=== PATIENT | female | born 1985 | race Caucasian/White ===

== ENCOUNTER 2017-02-06 | Emergency (ER) | payer OTHER ==
[~2017-02-06] VITALS: Ht 152.4 cm; Wt 88.9 kg
[2017-02-06 00:06] VITALS: Ht 152.4 cm; Wt 88.9 kg
[2017-02-06] MEDS ORDERED: KETOROLAC 30 MG INJ IV STA (01:15)
[2017-02-06] MEDS ORDERED: DIPHENHYDRAMINE 50 MG INJ IV ONE (01:30)
[2017-02-06] MEDS ORDERED: SOD CHLORIDE 0.9% 1,000 ML IV ONE (01:30)
[2017-02-06] MEDS ORDERED: METOCLOPRAMIDE 10 MG INJ IV ONE (01:30)
[2017-02-06] MEDS ORDERED: FIORICET PO (02:44)
[2017-02-06 03:10] VITALS: BP 119/80; PULSE 91; RESP 17; TEMP 98.1
--- NOTE | 2017-02-06 04:16 | ERD ---
ER Documentation Chief Complaint Chief Complaint STYLES SINCE 8PM W/ N/V AND DIZZINESS. HPI This is a 31-year-old female that presents to the ER with a left-sided headache that started 8 PM. Patient states that headache is severe, she tried taking Excedrin and a coke, however it did not work for her pain. Patient states that she has a past medical history of migraine headaches and that this headache is similar to previous headaches. This is not the worst headache of her life. Patient states that she experiences photophobia and sensitivity to sounds whenever these headaches occur, and she is experiencing this at this time. Patient denies any fevers or chills. She denies any trauma. She denies any vision loss or any sort of vision changes. Patient admits to nausea and nonbilious nonbloody vomiting however denies diarrhea. ROS 12 point review of systems was done, all negative except per HPI. Medications Home Meds Active Scripts Acetamin/Butalbital/Caffeine* (Fioricet*) [id number] Tab, 1 TAB PO Q6H Y for PAIN, #30 TAB Prov:VICENTADOREEN 02/06/17 Allergies Allergies: Coded Allergies: Penicillins (Verified Allergy, Unknown, rash, 02/09/14) oxycodone (Verified Allergy, Unknown, 02/06/17) PMhx/Soc Medical and Surgical Hx: pt denies Medical Hx, pt denies Surgical Hx History of Surgery: No Anesthesia Reaction: No Hx Neurological Disorder: No Hx Respiratory Disorders: No Hx Cardiac Disorders: No Hx Psychiatric Problems: No Hx Miscellaneous Medical Probl: No Hx Alcohol Use: No Hx Substance Use: No Hx Tobacco Use: No Smoking Status: Never smoker Physical Exam Vitals Vital Signs Date Time Temp Pulse Resp B/P Pulse Ox O2 Delivery O2 Flow Rate FiO2 02/06/17 03:10 98.1 91 17 119/80 100 Room Air 02/06/17 00:06 97.0 81 20 133/92 98 Physical Exam GENERAL: The patient is well developed and appropriate for usual state of health , in no apparent distress. HEENT: Atraumatic. Conjunctivae are pink. Pupils equal, round, and reactive to light. Extraocular muscles are grossly intact. Bilateral tympanic membranes are clear with no evidence of erythema, bulging or perforation. No sinus tenderness. NECK: C-spine is soft and supple. There is no cervical lymphadenopathy. CHEST: Clear to auscultation bilaterally. There are no rales, wheezes or rhonchi. HEART: Regular rate and rhythm. No murmurs, clicks, rubs or gallops. EXTREMITIES: Equal pulses bilaterally. There is no peripheral clubbing, cyanosis or edema. No focal swelling or erythema. Full range of motion. Grossly neurovascularly intact. NEURO: Alert and oriented. Cranial nerves II through XII are intact. Motor strength in all 4 extremities with 5/5 strength. Sensation grossly intact. Normal speech and gait. Negative Rhomberg. +2 DTRs. SKIN: There is no apparent rash or petechia. The skin is warm and dry. Results 24 hrs Current Medications Medications (Trade) Dose Ordered Sig/Zulay Route PRN Reason Start Time Stop Time Status Last Admin Dose Admin Ketorolac Tromethamine (Toradol) 30 mg ONCE STAT IV 02/06/17 01:15 02/06/17 01:17 DC 02/06/17 02:03 Diphenhydramine HCl (Benadryl) 25 mg ONCE ONCE IV 02/06/17 01:30 02/06/17 01:31 DC 02/06/17 02:02 Metoclopramide HCl 10 mg 10 mg ONCE ONCE IV 02/06/17 01:30 02/06/17 01:31 DC 02/06/17 02:02 Sodium Chloride (NS) 1,000 ml @ 1,000 mls/hr Q1H ONCE IV 02/06/17 01:30 02/06/17 02:29 DC 02/06/17 02:02 Procedures/MDM Differential Diagnosis includes but is not limited to; tension headache, migraine headache, cluster headache, sinus headache, nonspecific febrile headache, trigeminal neurologia, subdural hematoma, subarachnoid bleeding, meningitis, encephalitis. Patient is neurologically intact with no focal neurological deficits. Headache was completely resolved in the ER with IV, Benadryl, Reglan and fluids. I do not believe that further workup is necessary as patient has a past medical history of migraine headaches and this is similar in nature. Patient is extremely well-appearing and afebrile. She needs to follow-up with her primary care doctor within 1-2 days or return to ER sooner if symptoms worsen. My medical decision making sure with the patient she understands and agrees with plan. Departure Diagnosis: Primary Impression: Headache Condition: Stable Patient Instructions: Self-Care for Headaches Referrals: GWENDOLYN BIRMINGHAM (PCP) Additional Instructions: Call your primary care doctor TOMORROW for an appointment during the next 1-2 days.See the doctor sooner or return here if your condition worsens before your appointment time. DOREEN YADAV Feb 06, 2017 04:16
== END 2017-02-06 03:10 | disposition home or self-care (01) ==
LOC: FTE
DX: R51 Headache (principal)
CPT/HCPCS: 96374; 96375; J1200; J1885; J2765; J7030; Z7502

== ENCOUNTER 2017-03-04 20:35 | Emergency (ER) | payer OTHER ==
[~2017-03-04] VITALS: Ht 165.1 cm; Wt 92.0 kg
[~2017-03-04 20:35] MED LIST: FIORICET PO
[2017-03-04 20:52] VITALS: Ht 165.1 cm; Wt 92.0 kg
[2017-03-04] MEDS ORDERED: SOD CHLORIDE 0.9% 1,000 ML IV STA (22:52)
[2017-03-04] MEDS ORDERED: ONDANSETRON 4 MG INJ IV STA (22:52)
[2017-03-04] MEDS ORDERED: FAMOTIDINE 20 MG INJ IV ONE (23:00)
--- NOTE | 2017-03-04 23:16 | ERD ---
ER Documentation Chief Complaint Chief Complaint n/v since last night HPI 31-year-old female presents here to emergency department for complaints nausea vomiting diarrhea abdominal pain that started last night. Patient also had fever at home. Patient had multiple episodes of vomiting and diarrhea, does not have any blood in his stool or black stool. Patient is complaining of more epigastric pain, sharp pain, succession scale, accompanying bowel symptoms. Patient does not have any hematuria or dysuria. Patient did not have any flank pain. ROS All systems reviewed and are negative except as per history of present illness. Medications Home Meds Active Scripts Ondansetron (Ondansetron Odt) 4 Mg Tab.rapdis, 4 MG PO Q6H Y for NAUSEA AND/OR VOMITING, #30 TAB Prov:ENDY ABDULLAHI NP 03/05/17 Tramadol HCl (Tramadol HCl) 50 Mg Tablet, 50 MG PO Q6 Y for SEVERE PAIN LEVEL 7- 10, #20 TAB Prov:ENDY ABDULLAHI NP 03/05/17 Ibuprofen* (Motrin*) 600 Mg Tab, 600 MG PO Q6H Y for PAIN AND OR ELEVATED TEMP, #30 TAB Prov:ENDY ABDULLAHI NP 03/05/17 Dicyclomine Hcl* (Bentyl*) 10 Mg Capsule, 10 MG PO QID, #20 CAP Prov:ENDY ABDULLAHI NP 03/05/17 Acetamin/Butalbital/Caffeine* (Fioricet*) [id number] Tab, 1 TAB PO Q6H Y for PAIN, #30 TAB Prov:DOREEN YADAV 02/06/17 Allergies Allergies: Coded Allergies: Penicillins (Verified Allergy, Unknown, rash, 02/09/14) oxycodone (Verified Allergy, Unknown, 02/06/17) PMhx/Soc Medical and Surgical Hx: pt denies Medical Hx, pt denies Surgical Hx History of Surgery: No Anesthesia Reaction: No Hx Neurological Disorder: No Hx Respiratory Disorders: No Hx Cardiac Disorders: No Hx Psychiatric Problems: No Hx Miscellaneous Medical Probl: No Hx Alcohol Use: No Hx Substance Use: No Hx Tobacco Use: No FmHx Family History: No coronary disease, No diabetes, No other Physical Exam Vitals Vital Signs Date Time Temp Pulse Resp B/P Pulse Ox O2 Delivery O2 Flow Rate FiO2 03/04/17 20:52 99.3 108 16 130/80 97 Physical Exam GENERAL: The patient is well developed and appropriate for usual state of health, in no apparent distress. CHEST: Clear to auscultation bilaterally. There are no rales, wheezes or rhonchi. HEART: Regular rate and rhythm. No murmurs, clicks, rubs or gallops. No S3 or S4. ABDOMEN: Soft, nontender and nondistended. Hyperactive bowel sounds. No rebound or guarding. No gross peritonitis. No gross organomegaly or masses. No Ya sign or McBurney point tenderness. BACK: No midline or flank tenderness. EXTREMITIES: Equal pulses bilaterally. There is no peripheral clubbing, cyanosis or edema. No focal swelling or erythema. Full range of motion. Grossly neurovascularly intact. NEURO: Alert and oriented. Cranial nerves 2-12 intact. Motor strength in all 4 extremities with 5/5 strength. Sensation grossly intact. Normal speech and gait. SKIN: There is no apparent rash or petechia. The skin is warm and dry. HEMATOLOGIC AND LYMPHATIC: There is no evidence of excessive bruising or lymphedema. No gross cervical, axillary, or inguinal lymphadenopathy. Result Diagram: 03/04/17233403/04/172334 Results 24 hrs Laboratory Tests Test 03/04/17 23:35 White Blood Count 7.210^3/ul Red Blood Count 4.5410^6/ul Hemoglobin 13.0g/dl Hematocrit 40.1% Mean Corpuscular Volume 88.3fl Mean Corpuscular Hemoglobin 28.6pg Mean Corpuscular Hemoglobin Concent 32.4g/dl Red Cell Distribution Width 12.7% Platelet Count 85084^3/UL Mean Platelet Volume 9.7fl Neutrophils % 64.4% Lymphocytes % 26.1% Monocytes % 6.4% Eosinophils % 2.1% Basophils % 0.4% Nucleated Red Blood Cells % 0.0/100WBC Neutrophils # 4.710^3/ul Lymphocytes # 1.910^3/ul Monocytes # 0.510^3/ul Eosinophils # 0.210^3/ul Basophils # 0.010^3/ul Nucleated Red Blood Cells # 0.010^3/ul Urine Color YELLOW Urine Clarity CLEAR Urine pH 6.0 Urine Specific [place] 1.017 Urine Ketones NEGATIVEmg/dL Urine Nitrite NEGATIVEmg/dL Urine Bilirubin NEGATIVEmg/dL Urine Urobilinogen NEGATIVEmg/dL Urine Leukocyte Esterase NEGATIVELeu/ul Urine Hemoglobin NEGATIVEmg/dL Urine Glucose NEGATIVEmg/dL Urine Total Protein NEGATIVEmg/dl Sodium Level 139mmol/L Potassium Level 4.3mmol/L Chloride Level 102mmol/L Carbon Dioxide Level 26mmol/L Anion Gap 15 Blood Urea Nitrogen 8mg/dl Creatinine 0.52mg/dl Glucose Level 140mg/dl Calcium Level 9.6mg/dl Total Bilirubin 0.4mg/dl Direct Bilirubin 0.00mg/dl Indirect Bilirubin 0.4mg/dl Aspartate Amino Transf (AST/SGOT) 84IU/L Alanine Aminotransferase (ALT/SGPT) 127IU/L Alkaline Phosphatase 90IU/L Total Protein 7.1g/dl Albumin 3.9g/dl Globulin 3.20g/dl Albumin/Globulin Ratio 1.21 Lipase 69U/L Current Medications Medications (Trade) Dose Ordered Sig/Zulay Route PRN Reason Start Time Stop Time Status Last Admin Dose Admin Sodium Chloride (NS) 1,000 ml @ 1,000 mls/hr Q1H STAT IV 03/04/17 22:52 03/04/17 23:51 DC 03/04/17 23:28 Ondansetron HCl (Zofran Inj) 4 mg ONCE STAT IV 03/04/17 22:52 03/04/17 22:54 DC 03/04/17 23:28 Famotidine (Pepcid Iv) 20 mg ONCE ONCE IV 03/04/17 23:00 03/04/17 23:01 DC 03/04/17 23:28 Morphine Sulfate (morphine) 4 mg ONCE STAT IV 03/05/17 00:22 03/05/17 00:23 DC 03/05/17 00:29 Patient was given Zofran here in the emergency department. After treatment, patient was able to tolerate po fluids here in the emergency department without any vomiting. There is no signs and symptoms of dehydration. Normal saline IV bolus was given here in emergency department for rehydration, patient tolerated IV fluids. Pepcid was also given here in the emergency PROCEDURE: CT ABDOMEN/PELVIS WITHOUT CONTRAST CLINICAL INDICATION: 31-year-old female with abdominal pain. TECHNIQUE: The study was performed utilizing a [employer] VCT 64-slice CT scanner. Direct axial sections were obtained through the abdomen and pelvis without the use of intravenous contrast material. Sagittal and coronal reformations were obtained. One or more of the following dose reduction techniques were utilized: automated exposure control, adjustment of the mA and/ or kV according to patient's size and/or the use of iterative reconstruction technique. DICOM images are available. The images were reviewed on a PACS workstation. CTD/vol = 21.3 mGy; Total Exam DLP = 1272.5 mGy-cm. COMPARISON: None. FINDINGS: There is minimal bibasilar subsegmental atelectasis. There is no evidence for significant pleural effusion. The liver has a normal size and contour. There is marked diffuse decreased density throughout the liver consistent with fatty infiltration but without focal areas of abnormal density. No intrahepatic nor extrahepatic biliary ductal dilatation is seen. The gallbladder demonstrates no wall thickening nor pericholecystic fluid. No biliary stones are evident. The pancreas is without areas of abnormal attenuation. The spleen is identified and has a normal size without abnormal density. The adrenal glands are unremarkable. The kidneys are without abnormal density. No hydroureteronephrosis nor nephroureterolithiasis is evident. The urinary bladder contains urine. There is retained stool within the ascending and transverse colon without obstruction. The appendix is visualized and is without abnormal thickening or surrounding inflammatory reaction. The uterus is anteflexed. There is a cystic focus within the cul-de-sac region measuring approximately 2.8 x 3.0 x 2.2 cm. The aortoiliac vessels are without aneurysmal dilatation. The osseous structures are intact. IMPRESSION: 1. Hepatic steatosis. 2. Retained stool within the proximal colon without obstruction. 3. No CT evidence for appendicitis. 4. Cystic focus within the cul-de-sac region which may be ovarian in origin. Further evaluation with a pelvic ultrasound would be helpful. .Luis Vargas MD, MD Date Time Electronically viewed and signed by .Luis Vargas MD, MD on 03/05/2017 01:07 .M/ CC: ENDY ABDULLAHI RN [facility] PROCEDURE: ULTRASOUND PELVIS CLINICAL INDICATION: 31-year-old female with pelvic pain. TECHNIQUE: Multiple sonographic images of the pelvis were obtained utilizing a transabdominal and endovaginal technique. The images were reviewed on a PACS workstation. COMPARISON: CT abdomen/pelvis March 05, 2017. FINDINGS: The uterus is visualized and measures 7.0 x 3.6 x 4.2 cm. The endometrial echo complex is within normal limits and measures 6.7 mm. There is no evidence for free fluid. The right ovary has a normal echotexture and measures 4.3 x 2.0 x 3.8 cm. There is a right ovarian cyst measuring 2.3 x 2.7 x 2.8 cm. The left ovary has a normal echotexture and measures 3.9 x 2.1 x 3.1 cm. There is flow identified within the ovaries bilaterally. No adnexal masses are noted. IMPRESSION: Right ovarian cyst corresponding to the CT finding. .Luis Vargas MD, MD Date Time Electronically viewed and signed by .Luis Vargas MD, MD on 03/05/2017 02:48 .M/ CC: ENDY ABDULLAHI RN [facility] Procedures/MDM Medical Decision Making: Patient symptoms of vomiting diarrhea abdominal pain most likely is consistent with viral gastroenteritis. Also there is an incidental finding of a right ovarian cyst most likely can be aggravating the pain. No symptoms of any ovarian torsion. There is low suspicion for abdominal emergencies at this time. Patients abdominal exam is normal at this time. Patients radiology exam does not show any abdominal emergencies at this time. There is low suspicion for appendicitis, cholecystitis, abdominal aortic aneurysms or peritonitis at this time. There is low suspicion for sepsis. Patient appears well and is hemodynamically stable. Disposition: Home. Condition: Stable Prescription BEntyl, Zofran, Tramadol, Ibuprofen. Instructions: Patient is advised to take medications as prescribed. Patient is advised to rest, increase fluid intake and do brat diet for next 1-2 days and progress as tolerated. Patient is advised that if symptoms are worse, severe abdominal pain, uncontrolled vomiting, high fever, severe flank pain, worst signs and symptoms, to return to the emergency department immediately. Otherwise, patient can follow up with primary care doctor in 5-7 days. Disclaimer: Inadvertent spelling and grammatical errors are likely due to EHR/ dictation software use and do not reflect on the overall quality of patient care. Also, please note that the electronic time recorded on this note does not necessarily reflect the actual time of the patient encounter. Departure Diagnosis: Primary Impression: Viral gastroenteritis Additional Impression: Right ovarian cyst Condition: Stable Patient Instructions: Gastroenteritis, Viral (6Y-Adult), Ovarian Cyst Additional Instructions: Patient is advised to take medications as prescribed. Patient is advised to rest, increase fluid intake and do brat diet for next 1-2 days and progress as tolerated. Patient is advised that if symptoms are worse, severe abdominal pain , uncontrolled vomiting, high fever, severe flank pain, worst signs and symptoms , to return to the emergency department immediately. Otherwise, patient can follow up with primary care doctor in 5-7 days. ENDY ABDULLAHI NP Mar 04, 2017 23:16
[2017-03-05 00:07] LABS: BASOPHILS % 0.4 % (0.0-2.0); EOSINOPHILS # 0.2 10^3/ul (0.0-0.5); EOSINOPHILS % 2.1 % (0.0-7.0); HEMATOCRIT 40.1 % (37.0-47.0); LYMPHOCYTES # 1.9 10^3/ul (0.8-2.9); LYMPHOCYTES % 26.1 % (15.0-51.0); MEAN CORPUSCULAR HEMOGLOBIN 28.6 pg (29.0-33.0); MEAN CORPUSCULAR HGB CONC 32.4 g/dl (32.0-37.0); MEAN CORPUSCULAR VOLUME 88.3 fl (82.0-101.0); MEAN PLATELET VOLUME 9.7 fl (7.4-10.4); MONOCYTE # 0.5 10^3/ul (0.3-0.9); MONOCYTES % 6.4 % (0.0-11.0); NEUTROPHIL # 4.7 10^3/ul (1.6-7.5); NEUTROPHILS % 64.4 % (39.0-77.0); PLATELET COUNT 249 10^3/UL (140-415); RED BLOOD COUNT 4.54 10^6/ul (4.20-5.40); RED CELL DISTRIBUTION WIDTH 12.7 % (11.5-14.5); WHITE BLOOD COUNT 7.2 10^3/ul (4.8-10.8)
[2017-03-05 00:18] LABS: ADD UMIC NO; UR ASCORBIC ACID NEGATIVE (NEGATIVE); UR BILIRUBIN (Dip) NEGATIVE (NEGATIVE); UR BLOOD (Dip) NEGATIVE (NEGATIVE); UR CLARITY CLEAR (CLEAR); UR COLOR YELLOW (YELLOW); UR GLUCOSE (Dip) NEGATIVE (NEGATIVE); UR KETONES (Dip) NEGATIVE (NEGATIVE); UR LEUKOCYTE ESTERASE (Dip) NEGATIVE Leu/ul (NEGATIVE); UR NITRITE (Dip) NEGATIVE (NEGATIVE); UR SPECIFIC GRAVITY (Dip) 1.017 (1.003-1.030); UR TOTAL PROTEIN (Dip) NEGATIVE (NEGATIVE); UR UROBILINOGEN (Dip) NEGATIVE (NEGATIVE)
[2017-03-05] MEDS ORDERED: morphine 4 MG/ML VIAL IV STA (00:22)
--- NOTE | 2017-03-05 01:07 | RADRPT ---
PROCEDURE: CT ABDOMEN/PELVIS WITHOUT CONTRAST CLINICAL INDICATION: 31-year-old female with abdominal pain. TECHNIQUE: The study was performed utilizing a [employer] VCT 64-slice CT scanner. Direct axia l sections were obtained through the abdomen and pelvis without the use of intravenous contrast mate rial. Sagittal and coronal reformations were obtained. One or more of the following dose reduction t echniques were utilized: automated exposure control, adjustment of the mA and/or kV according to pat ient's size and/or the use of iterative reconstruction technique. DICOM images are available. The im ages were reviewed on a PACS workstation. CTD/vol = 21.3 mGy; Total Exam DLP = 1272.5 mGy-cm. COMPARISON: None. FINDINGS: There is minimal bibasilar subsegmental atelectasis. There is no evidence for significant pleural e ffusion. The liver has a normal size and contour. There is marked diffuse decreased density through out the liver consistent with fatty infiltration but without focal areas of abnormal density. No int rahepatic nor extrahepatic biliary ductal dilatation is seen. The gallbladder demonstrates no wall t hickening nor pericholecystic fluid. No biliary stones are evident. The pancreas is without areas of abnormal attenuation. The spleen is identified and has a normal size without abnormal density. The adrenal glands are unremarkable. The kidneys are without abnormal density. No hydroureteronephrosis nor nephroureterolithiasis is evident. The urinary bladder contains urine. There is retained stool within the ascending and transverse colon without obstruction. The appendix is visualized and is wi thout abnormal thickening or surrounding inflammatory reaction. The uterus is anteflexed. There is a cystic focus within the cul-de-sac region measuring approximately 2.8 x 3.0 x 2.2 cm. The aortoili ac vessels are without aneurysmal dilatation. The osseous structures are intact. IMPRESSION: 1. Hepatic steatosis. 2. Retained stool within the proximal colon without obstruction. 3. No CT evidence for appendicitis. 4. Cystic focus within the cul-de-sac region which may be ovarian in origin. Further evaluation wit h a pelvic ultrasound would be helpful. .Luis Vargas MD, MD Date Time Electronically viewed and signed by .Luis Vargas MD, MD on 03/05/2017 01:07 .Carlos
[2017-03-05 01:22] LABS: ALBUMIN 3.9 g/dl (3.3-4.9); ALBUMIN/GLOBULIN RATIO 1.21; BILIRUBIN,INDIRECT 0.4 mg/dl (0-1.1); BILIRUBIN,TOTAL 0.4 mg/dl (0.2-1.3); CALCIUM 9.6 mg/dl (8.4-10.2); CREATININE 0.52 mg/dl (0.44-1.00); POTASSIUM 4.3 mmol/L (3.5-5.1); TOTAL PROTEIN 7.1 g/dl (6.1-8.1)
--- NOTE | 2017-03-05 02:48 | RADRPT ---
PROCEDURE: ULTRASOUND PELVIS CLINICAL INDICATION: 31-year-old female with pelvic pain. TECHNIQUE: Multiple sonographic images of the pelvis were obtained utilizing a transabdominal and endovaginal technique. The images were reviewed on a PACS workstation. COMPARISON: CT abdomen/pelvis March 05, 2017. FINDINGS: The uterus is visualized and measures 7.0 x 3.6 x 4.2 cm. The endometrial echo complex is within nor mal limits and measures 6.7 mm. There is no evidence for free fluid. The right ovary has a normal ec hotexture and measures 4.3 x 2.0 x 3.8 cm. There is a right ovarian cyst measuring 2.3 x 2.7 x 2.8 c m. The left ovary has a normal echotexture and measures 3.9 x 2.1 x 3.1 cm. There is flow identifie d within the ovaries bilaterally. No adnexal masses are noted. IMPRESSION: Right ovarian cyst corresponding to the CT finding. .Luis Vargas MD, MD Date Time Electronically viewed and signed by .Luis Vargas MD, on 03/05/2017 02:48 .M/
[2017-03-05] MEDS ORDERED: DICY10CA60 PO (02:58)
[2017-03-05] MEDS ORDERED: ONDA4TAB14 PO (02:58)
[2017-03-05] MEDS ORDERED: TRAM50TA2 PO (02:58)
[2017-03-05] MEDS ORDERED: IBUP-1542 PO (02:58)
== END 2017-03-05 03:24 | disposition home or self-care (01) ==
LOC: FTE 20:35
DX: A08.4 Viral intestinal infection, unspecified (principal)
CPT/HCPCS: 74176; 76830; 76856; 80053; 81003; 83690; 85025; J2270; J2405; J7030; Z7610; 36415; 96374; 96375

== ENCOUNTER 2018-07-10 15:27 | Emergency (ER) | payer OTHER ==
[~2018-07-10] VITALS: Ht 152.4 cm; Wt 84.2 kg
[~2018-07-10 15:27] MED LIST changes: +DICY10CA40 PO; +IBUP-1542 PO; +ONDA4TAB14 PO; +TRAM50TA2 PO
[2018-07-10 15:43] VITALS: Ht 152.4 cm; Wt 84.2 kg
[2018-07-10] MEDS ORDERED: LORAZEPAM 1 MG TAB PO ONE ×2 (17:00→23:30)
--- NOTE | 2018-07-10 17:38 | ERD ---
ER Documentation Chief Complaint Chief Complaint anxious and depress very stress @ work, denies SI or HI HPI This is a 32-year-old woman brought in by her sister for increasing anxiety and depression, patient states she has had recent thoughts of but denies suicidal homicidal ideation. She denies recent fevers or chills, no headache or blurry vision, no chest pain or shortness of breath. ROS All systems reviewed and are negative except as per history of present illness. Medications Home Meds Reported Medications Levothyroxine Sodium* (Levothyroxine Sodium*) 75 Mcg Tablet, 75 MCG PO BEFORE BREAKFAST, #30 TAB 07/10/18 Sitagliptin* (Januvia*) 100 Mg Tablet, 100 MG PO DAILY, #30 TAB 07/10/18 Metformin* (Glucophage*) 1,000 Mg Tablet, 1000 MG PO BID, #60 TAB 07/10/18 Discontinued Scripts Ondansetron (Ondansetron Odt) 4 Mg Tab.rapdis, 4 MG PO Q6H PRN for NAUSEA AND/OR VOMITING, #30 TAB Prov:ENDY ABDULLAHI NP 03/05/17 Tramadol HCl (Tramadol HCl) 50 Mg Tablet, 50 MG PO Q6 PRN for SEVERE PAIN LEVEL 7-10, #20 TAB Prov:ENDY ABDULLAHI NP 03/05/17 Ibuprofen* (Motrin*) 600 Mg Tab, 600 MG PO Q6H PRN for PAIN AND OR ELEVATED TEMP, #30 TAB Prov:ENDY ABDULLAHI NP 03/05/17 Dicyclomine HCl (Dicyclomine HCl) 10 Mg Capsule, 10 MG PO QID, #20 CAP Prov:ENDY ABDULLAHI NP 03/05/17 Acetamin/Butalbital/Caffeine* (Fioricet*) [id number] Tab, 1 TAB PO Q6H PRN for PAIN, #30 TAB Prov:DOREEN YADAV 02/06/17 Allergies Allergies: Coded Allergies: Penicillins (Unverified Allergy, Unknown, rash, 07/10/18) oxycodone (Unverified Allergy, Unknown, 07/10/18) PMhx/Soc History of Surgery: No Anesthesia Reaction: No Hx Neurological Disorder: No Hx Respiratory Disorders: No Hx Cardiac Disorders: No Hx Psychiatric Problems: No Hx Miscellaneous Medical Probl: No Hx Alcohol Use: No Hx Substance Use: No Hx Tobacco Use: No FmHx Family History: No diabetes Physical Exam Vitals Vital Signs Date Temp Pulse Resp B/P (MAP) Pulse Ox O2 O2 Flow FiO2 Time Delivery Rate 07/10/18 97.6 88 16 136/78 98 Room Air 20:30 (97) 07/10/18 97.9 99 18 156/87 97 15:43 (110) Physical Exam GENERAL: Well-developed, well-nourished, depressed affect, afebrile HEENT: Moist mucous membranes, pink conjunctiva, no cervical spine tenderness or step-off deformities, no goiter, no jaundice or icterus, extraocular movements intact without pain. No submandibular induration, and no pharyngeal erythema NEURO: Alert and oriented 3, cranial nerves II through XII intact bilaterally, pupils equal round reactive to light, no focal deficits or facial asymmetry, sensation intact distally Strength 5/5 in upper and lower extremities bilaterally CARDIAC: Regular rate and rhythm, no murmurs rubs or gallops LUNGS: Clear bilaterally no wheezing crackles or stridor ABDOMEN: Soft nontender, no guarding, no rigidity, no rebound, no psoas sign no obturator sign. Normoactive bowel sounds SKIN: Warm and dry to touch, no abrasions, contusions, or hematomas, no lac erations, no ecchymosis, no target lesions, and without ulcers EXTREMITIES: No clubbing cyanosis or edema, calves are bilaterally symmetrical, no Homans sign, no popliteal cord sign. Distal pulses equal and bilateral PSYCH: Depressed affect Result Diagram: 07/10/18181307/10/181813 Results 24 hrs Laboratory Tests Test 07/10/18 17:20 07/10/18 17:39 07/10/18 18:14 Urine Opiates Screen Negative Urine Barbiturates Negative Urine Amphetamines Screen Negative Urine Benzodiazepines Screen Negative Urine Cocaine Screen Negative Urine Cannabinoids Negative POC Beta HCG, Qualitative NEGATIVE White Blood Count 9.8 10^3/ul Red Blood Count 4.55 10^6/ul Hemoglobin 12.6 g/dl Hematocrit 38.7 % Mean Corpuscular Volume 85.1 fl Mean Corpuscular Hemoglobin 27.7 pg Mean Corpuscular Hemoglobin Concent 32.6 g/dl Red Cell Distribution Width 12.8 % Platelet Count 312 10^3/UL Mean Platelet Volume 9.6 fl Immature Granulocytes % 0.400 % Neutrophils % 63.3 % Lymphocytes % 28.1 % Monocytes % 5.3 % Eosinophils % 2.6 % Basophils % 0.3 % Nucleated Red Blood Cells % 0.0 /100WBC Immature Granulocytes # 0.040 10^3/ul Neutrophils # 6.2 10^3/ul Lymphocytes # 2.8 10^3/ul Monocytes # 0.5 10^3/ul Eosinophils # 0.3 10^3/ul Basophils # 0.0 10^3/ul Nucleated Red Blood Cells # 0.0 10^3/ul Sodium Level 141 mmol/L Potassium Level 4.3 mmol/L Chloride Level 105 mmol/L Carbon Dioxide Level 27 mmol/L Anion Gap 9 Blood Urea Nitrogen 10 mg/dl Creatinine 0.46 mg/dl Est Glomerular Filtrat Rate mL/min > 60 mL/min Glucose Level 316 mg/dl Calcium Level 9.6 mg/dl Total Bilirubin 0.3 mg/dl Direct Bilirubin 0.00 mg/dl Indirect Bilirubin 0.3 mg/dl Aspartate Amino Transf (AST/SGOT) 47 IU/L Alanine Aminotransferase (ALT/SGPT) 83 IU/L Alkaline Phosphatase 84 IU/L Total Protein 7.7 g/dl Albumin 4.4 g/dl Globulin 3.30 g/dl Albumin/Globulin Ratio 1.33 Salicylates Level < 1.0 mg/dl Acetaminophen Level < 10.0 ug/ml Ethyl Alcohol Level < 10.0 mg/dl Current Medications Medications Dose Sig/Zulay Start Time Status Last (Trade) Ordered Route PRN Stop Time Admin Dose Reason Admin Lorazepam 1 mg ONCE ONCE 07/10/18 DC 07/10/18 (Ativan) PO 17:00 07/10/18 17:56 17:01 Lorazepam 1 mg ONCE ONCE 07/10/18 DC 07/10/18 (Ativan) PO 23:30 07/10/18 23:22 23:31 Procedures/MDM Security one-to-one watch was established and tele-psychiatry was consulted. Tele-psychiatry assessment was for voluntary psychiatric hold given the patient's symptoms. I administered lorazepam 1 mg p.o. for her symptoms. CBC and electrolytes were within normal limits, liver function tests are normal, drug screen negative, test negative, urinalysis negative for infection, aspirin, Tylenol, ethanol levels negative Observation Note: Time: 6 hours Family Hx: No Hypertension Evaluation: Multiple exams showed improving symptoms and no evidence of worsening mental status or abnormal vital signs. Patient's behavioral symptoms have stabilized while in the department. Patient is medically cleared and appropriate for psychiatric evaluation and work up. No e/o neurologic, toxic, infectious, or metabolic cause. Patient pending PET evaluation for transferred to psychiatric facility Departure Diagnosis: Primary Impression: Anxiety Additional Impression: Depression Depression Type: unspecified Qualified Codes: F32.9 - Major depressive disorder, single episode, unspecified Condition: SRAVANI Middleton MD Jul 10, 2018 17:38
--- NOTE | 2018-07-10 18:18 | PSY ---
Date/Time of Note Date/Time of Note DATE: 07/10/18 TIME: 21:10 Psychiatric Subjective Eval Consent Pt consented to telemedicine: Yes Subjective Evaluation Patient location: emergency Chief Complaint: anxious and depress very stress @ work, denies SI or HI History of present illness HPI: 32 yo female with ho depression, cocaine use, bib sister to ED for anxiety and depression and insomnia. Did see a clinic value analysis coordinator today and was referred for intake on 07/13/18. Reports she has thoughts of hopelesness and but denies wanting to kill self. Admits to depression low NRG. Sister confirms hx. Reports hopelessness and says that sister was clear that she would rather be and that her "mission here is done." Reports that pt now appears like when she was in HS and tried to kill self. Past Psych HX: remote hx of psych admits and suicide attempts PMHx: diabetes, hypothyroidism Allergies: penicillins, oxycodone Meds: denies MSE: casually groomed, cooperative, decreased prosody of speech, depressed, restricted, organized, no delusions or avh admits to a desire to 32 yo female with depresion, passive si voluntary psych [place] [facility] [place] For moderate agitation Zyprexa 5mg po prn For severe agitation chlorpromazine 25mg im prn Medical history Problems Medical Problems: (1) Anxiety Status: Acute (2) Headache Status: Acute (3) Headache Status: Acute (4) Right ovarian cyst Status: Acute (5) Viral gastroenteritis Status: Acute Allergies: Coded Allergies: Penicillins (Verified Allergy, Unknown, rash, 02/09/14) oxycodone (Verified Allergy, Unknown, 02/06/17) Psychiatric Objective Eval Mental Status Examination: Laboratory Results Laboratory Tests Test 07/10/18 17:20 07/10/18 17:39 Urine Opiates Screen Negative Urine Barbiturates Negative Urine Amphetamines Screen Negative Urine Benzodiazepines Screen Negative Urine Cocaine Screen Negative Urine Cannabinoids Negative POC Beta HCG, Qualitative NEGATIVE Assessment and Plan Recommendation/Plan Multiple antipsychotics: No Discharge Disposition: Psychiatric inpatient Legal Status: Voluntary MARCIN CHAPPELL Jul 10, 2018 18:18
[2018-07-10] MEDS ORDERED: LEVO75TA5 PO (20:56)
[2018-07-10] MEDS ORDERED: SITA100T11 PO (20:56)
[2018-07-10] MEDS ORDERED: MTF1000T PO (20:56)
--- NOTE | 2018-07-10 22:49 | PSY ---
Date/Time of Note Date/Time of Note DATE: 07/10/18 TIME: 22:47 Psychiatric Subjective Eval Consent Pt consented to telemedicine: Yes Subjective Evaluation Patient location: emergency Chief Complaint: anxious and depress very stress @ work, denies SI or HI Reason for consult: Depression History of present illness See psychiatric evaluation done 07/[address] Vega. Per RN the patient was possibly wanting to change her mind and go home but then decided she would just take an anxiety medication and sleep through the night and see how she felt tomorrow morning. No apparent indication for further psychiatric consultation as patient still in agreement for voluntary admission per RN. Hospitalization: yes Medical history Problems Medical Problems: (1) Anxiety Status: Acute (2) Headache Status: Acute (3) Headache Status: Acute (4) Right ovarian cyst Status: Acute (5) Viral gastroenteritis Status: Acute Allergies: Coded Allergies: Penicillins (Unverified Allergy, Unknown, rash, 07/10/18) oxycodone (Unverified Allergy, Unknown, 07/10/18) Social History Marital status: single Level of education: HS DPA/Conservatorship: No Psychiatric Objective Eval Mental Status Examination: Laboratory Results Laboratory Tests Test 07/10/18 17:20 07/10/18 17:39 07/10/18 18:14 Urine Opiates Screen Negative Urine Barbiturates Negative Urine Amphetamines Screen Negative Urine Benzodiazepines Screen Negative Urine Cocaine Screen Negative Urine Cannabinoids Negative POC Beta HCG, Qualitative NEGATIVE White Blood Count 9.8 10^3/ul Red Blood Count 4.55 10^6/ul Hemoglobin 12.6 g/dl Hematocrit 38.7 % Mean Corpuscular Volume 85.1 fl Mean Corpuscular Hemoglobin 27.7 pg Mean Corpuscular Hemoglobin Concent 32.6 g/dl Red Cell Distribution Width 12.8 % Platelet Count 312 10^3/UL Mean Platelet Volume 9.6 fl Immature Granulocytes % 0.400 % Neutrophils % 63.3 % Lymphocytes % 28.1 % Monocytes % 5.3 % Eosinophils % 2.6 % Basophils % 0.3 % Nucleated Red Blood Cells % 0.0 /100WBC Immature Granulocytes # 0.040 10^3/ul Neutrophils # 6.2 10^3/ul Lymphocytes # 2.8 10^3/ul Monocytes # 0.5 10^3/ul Eosinophils # 0.3 10^3/ul Basophils # 0.0 10^3/ul Nucleated Red Blood Cells # 0.0 10^3/ul Sodium Level 141 mmol/L Potassium Level 4.3 mmol/L Chloride Level 105 mmol/L Carbon Dioxide Level 27 mmol/L Anion Gap 9 Blood Urea Nitrogen 10 mg/dl Creatinine 0.46 mg/dl Est Glomerular Filtrat Rate mL/min > 60 mL/min Glucose Level 316 mg/dl Calcium Level 9.6 mg/dl Total Bilirubin 0.3 mg/dl Direct Bilirubin 0.00 mg/dl Indirect Bilirubin 0.3 mg/dl Aspartate Amino Transf (AST/SGOT) 47 IU/L Alanine Aminotransferase (ALT/SGPT) 83 IU/L Alkaline Phosphatase 84 IU/L Total Protein 7.7 g/dl Albumin 4.4 g/dl Globulin 3.30 g/dl Albumin/Globulin Ratio 1.33 Salicylates Level < 1.0 mg/dl Acetaminophen Level < 10.0 ug/ml Ethyl Alcohol Level < 10.0 mg/dl Assessment and Plan Recommendation/Plan Multiple antipsychotics: No Discharge Disposition: Psychiatric inpatient Legal Status: Voluntary Other Patient still in agreement with plan as discussed with Dr. Vega per RN. No indication for further psychiatric consultation at this time. NABILA FLANNERY MD Jul 10, 2018 22:49
--- NOTE | 2018-07-11 09:46 | PSY ---
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 Pt was evaluated twice by telepsychiatry. Voluntary inpt was recommended. However, the pt is feeling better. Her fiancee is at bedside with her consent. Pt says she feels safe about going home; she actually never made a suicidal statement; her fiancee confirms it. Pt is hopeful and optimistic; she says her therapist yesterday gave her time off and referred her to IOP. Pt Denies SI orHI, denies AH or VH. Past psychiatric history pt reports 2 SA and inpt then she was in HS Hospitalization: yes Family History denies Medical history Problems Medical Problems: (1) Anxiety Status: Acute (2) Depression Status: Acute (3) Headache Status: Acute (4) Headache Status: Acute (5) Right ovarian cyst Status: Acute (6) Viral gastroenteritis Status: Acute Allergies: Coded Allergies: Penicillins (Unverified Allergy, Unknown, rash, 07/10/18) oxycodone (Unverified Allergy, Unknown, 07/10/18) Social History Marital status: single Level of education: college DPA/Conservatorship: No Psychiatric Objective Eval Review of Systems: Review of Systems: Not Applicable Physical Examination: Sleep: Insomnia Appetite: Decreased, Weight Loss Energy: Decreased Interest: Decreased Mental Status Examination: Appearance: Groomed Psychomotor Activity: Normal Behavior: Cooperative Speech: Clear AFFECT: Appropriate Mood: Anxious Though Process: Linear Thought Content: Normal Suicidal: No Homicidal: No On 72 hour hold: No Orientation: x4 Cognition: Alert Insight: Intact Judgement: Intact Laboratory Results Laboratory Tests Test 07/10/18 17:20 07/10/18 17:39 07/10/18 18:14 Urine Opiates Screen Negative Urine Barbiturates Negative Urine Amphetamines Screen Negative Urine Benzodiazepines Screen Negative Urine Cocaine Screen Negative Urine Cannabinoids Negative POC Beta HCG, Qualitative NEGATIVE White Blood Count 9.8 10^3/ul Red Blood Count 4.55 10^6/ul Hemoglobin 12.6 g/dl Hematocrit 38.7 % Mean Corpuscular Volume 85.1 fl Mean Corpuscular Hemoglobin 27.7 pg Mean Corpuscular Hemoglobin Concent 32.6 g/dl Red Cell Distribution Width 12.8 % Platelet Count 312 10^3/UL Mean Platelet Volume 9.6 fl Immature Granulocytes % 0.400 % Neutrophils % 63.3 % Lymphocytes % 28.1 % Monocytes % 5.3 % Eosinophils % 2.6 % Basophils % 0.3 % Nucleated Red Blood Cells % 0.0 /100WBC Immature Granulocytes # 0.040 10^3/ul Neutrophils # 6.2 10^3/ul Lymphocytes # 2.8 10^3/ul Monocytes # 0.5 10^3/ul Eosinophils # 0.3 10^3/ul Basophils # 0.0 10^3/ul Nucleated Red Blood Cells # 0.0 10^3/ul Sodium Level 141 mmol/L Potassium Level 4.3 mmol/L Chloride Level 105 mmol/L Carbon Dioxide Level 27 mmol/L Anion Gap 9 Blood Urea Nitrogen 10 mg/dl Creatinine 0.46 mg/dl Est Glomerular Filtrat Rate mL/min > 60 mL/min Glucose Level 316 mg/dl Calcium Level 9.6 mg/dl Total Bilirubin 0.3 mg/dl Direct Bilirubin 0.00 mg/dl Indirect Bilirubin 0.3 mg/dl Aspartate Amino Transf (AST/SGOT) 47 IU/L Alanine Aminotransferase (ALT/SGPT) 83 IU/L Alkaline Phosphatase 84 IU/L Total Protein 7.7 g/dl Albumin 4.4 g/dl Globulin 3.30 g/dl Albumin/Globulin Ratio 1.33 Salicylates Level < 1.0 mg/dl Acetaminophen Level < 10.0 ug/ml Ethyl Alcohol Level < 10.0 mg/dl Assessment and Plan Assessment/Diagnosis Diagnosis MAJOR EPRESSIVE DISORDER RECURRENT MODERATE. GENERALIZED ANXIETY DISORDER. PANIC DISORDER. Recommendation/Plan Medication Management PLEASE RX LEXAPRO 10 MG POQHS; ATIVAN 0.5 MG PO PRN Q 12 HRS SEVERE PANIC [place]. RISKS, BENEFITS D/W THE PT. Multiple antipsychotics: No Psychotherapy PLEASE REFER TO IOP Pt. Caregiver/Family Education SUZYANCEEnrique AGREES WITH THE PLAN AND FEELS SAFE ABOUT TAKING THE PT HOME Discharge Disposition: Community (home) Legal Status: Release involuntary hold JULIAN RAMON MD Jul 11, 2018 09:46
--- NOTE | 2018-07-11 09:59 | EN ---
Date/Time of Note Date/Time of Note DATE: 07/11/18 TIME: 09:58 ER Progress Note This patient is denying homicidal or suicidal ideation. Patient was evaluated by tele-psych again and tonsillitis recommend this patient be discharged at this time. The patient and her family members feel comfortable with the plan for discharge. The patient will be discharged into the care over family members and was advised she can return to the ER at any point for reevaluation. She does have outpatient psychiatric services CHAS KEMP DO Jul 11, 2018 09:59
[2018-07-11] MEDS ORDERED: LORAZEPAM 2 MG INJ IV ONE (10:00)
[2018-07-11] MEDS ORDERED: LORAZEPAM 0.5 MG TAB PO ONE (10:00)
[2018-07-11] MEDS ORDERED: LORA-441 PO (10:06)
[2018-07-11] MEDS ORDERED: ESCI10TA PO (10:17)
[2018-07-11 11:32] VITALS: BP 131/93; PULSE 89; RESP 17
== END 2018-07-11 11:36 | disposition home or self-care (01) ==
LOC: FTE 15:27 → E/R 07-11 11:36
DX: F41.9 Anxiety disorder, unspecified (principal); F32.9 Major depressive disorder, single episode, unspecified; R40.2142 Coma scale, eyes open, spontaneous, at arrival to emergency department; R40.2362 Coma scale, best motor response, obeys commands, at arrival to emergency department
CPT/HCPCS: 80053; 80307; 81025; 85025; Z7502; Z7610; 81001; 99283

== ENCOUNTER 2018-07-26 18:04 | Emergency (ER) | payer OTHER ==
[~2018-07-26] VITALS: Wt 80.0 kg
[~2018-07-26 18:04] MED LIST changes: -DICY10CA40 PO; +ESCI10TA PO; -FIORICET PO; -IBUP-1542 PO; +LEVO75TA5 PO; +LORA-441 PO; +MTF1000T PO; -ONDA4TAB14 PO; +SITA100T11 PO; -TRAM50TA2 PO
[2018-07-26] MEDS ORDERED: LIDOCAINE/MYLANTA 40 ML BTL PO ONE (19:00)
[2018-07-26] MEDS ORDERED: FAMO-96 PO (19:47)
--- NOTE | 2018-07-26 19:53 | ERD ---
ER Documentation Chief Complaint Chief Complaint ap x 3 days, axiety on and off HPI Patient is a 32-year-old female with past medical history of type 2 diabetes, depression, bipolar disorder, hypothyroidism, presents the ER for concerns of left upper quadrant abdominal pain times 1 month. She states pain is gotten worse for the last few days. Patient denies any fevers, chills, nausea or vomiting. Denies any diarrhea. Patient states that she also feels as if her anxiety is acting up. She states that she felt left arm pain and hand numbness earlier today however she has no symptoms at this time. Patient denies any chest pain or shortness of breath at this time. Patient states that she is taking gabapentin for her anxiety. Patient states her last menstrual period was 05-26-18. Patient denies any homicidal or suicidal ideations. ROS All systems reviewed and are negative except as per history of present illness. Medications Home Meds Active Scripts Famotidine* (Pepcid*) 20 Mg Tablet, 20 MG PO BID for 15 Days, TAB Prov:SHANIQUE GENAO PA-C 07/26/18 Escitalopram Oxalate* (Lexapro*) 10 Mg Tablet, 10 MG PO DAILY, #14 TAB Prov:CHAS KEMP DO 07/11/18 Lorazepam* (Ativan*) 0.5 Mg Tablet, 0.5 MG PO Q8, #5 TAB Prov:CHAS KEMP DO 07/11/18 Reported Medications Levothyroxine Sodium* (Levothyroxine Sodium*) 75 Mcg Tablet, 75 MCG PO BEFORE BREAKFAST, #30 TAB 07/10/18 Sitagliptin* (Januvia*) 100 Mg Tablet, 100 MG PO DAILY, #30 TAB 07/10/18 Metformin* (Glucophage*) 1,000 Mg Tablet, 1000 MG PO BID, #60 TAB 07/10/18 Allergies Allergies: Coded Allergies: Penicillins (Unverified Allergy, Unknown, rash, 07/10/18) oxycodone (Unverified Allergy, Unknown, 07/10/18) PMhx/Soc History of Surgery: No Anesthesia Reaction: No Hx Neurological Disorder: No Hx Respiratory Disorders: No Hx Cardiac Disorders: No 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 Appears in no acute distress. Speaking in full sentences. HEAD: Normocephalic, atraumatic. EYES: Pupils are equally reactive bilaterally. EOMs grossly intact. No conjunctival erythema. ENT: Moist mucous membranes. No uvula deviation. No kissing tonsils. NECK: Supple. No meningismus. Normal range of motion of the neck. LUNG: Clear to auscultation bilaterally. No rhonchi, wheezing, rales or coarse breath sounds. HEART: Regular rate and rhythm. No murmurs, rubs or gallops. ABDOMEN: . Soft and nondistended. Tender to palpation in the left upper quadrant. Positive bowel sounds in all four quadrants. No rebound tenderness, no guarding. (-) McBurney's point tenderness. No CVA tenderness. EXTREMITIES: Equal pulses bilaterally. No peripheral clubbing, cyanosis or edema. No unilateral leg swelling. NEUROLOGIC: Alert and oriented. Moving all four extremities without any difficulty. Normal speech. Steady gait. SKIN: Normal color. Warm and dry. No rashes or lesions. Results 24 hrs Laboratory Tests Test 07/26/18 18:51 07/26/18 18:57 Bedside Urine pH (LAB) 5.5 Bedside Urine Protein (LAB) Negative Bedside Urine Glucose (UA) 0.1% Bedside Urine Ketones (LAB) Trace Bedside Urine Blood Negative Bedside Urine Nitrite (LAB) Negative Bedside Urine Leukocyte Esterase (L Trace POC Beta HCG, Qualitative NEGATIVE Current Medications Medications Dose Sig/Zulay Start Time Status Last (Trade) Ordered Route PRN Stop Time Admin Dose Reason Admin 40 ml ONCE ONCE 07/26/18 DC 07/26/18 Miscellaneous PO 19:00 18:58 Medication 07/26/18 19:01 (Gi Cocktail (2)) Procedures/MDM MEDICAL DECISION MAKING: This is a 32-year-old female with past medical history of type 2 diabetes, depression, bipolar syndrome, hypothyroidism, presents the ER for concerns of intermittent left upper abdominal pain times 1 month. Patient denies any associated nausea, vomiting, fevers or chills. Patient also requesting prescription for Ativan as she states that gabapentin is helping with her anxiety. [facility]IN[facility] report shows that patient has had 5 presents the emergency department this year. On exam, patient had mild left upper quadrant tenderness. Patient was given GI cocktail. Patient reported improvement in pain prior to discharge. Explained to patient that she will need to follow-up with her primary care physician for any medication changes. At this time the patient presentation is most consistent with left upper quadrant pain and anxiety. Low suspicion for homicidal ideations or suicidal ideations. Differential diagnosis included was not limited to acute coronary syndrome, AAA, mesenteric ischemia, lower lobe pneumonia, DKA, bowel perforation, cholecystitis, choledocholithiasis, ascending cholangitis, hepatic abscess, pancreatitis, PUD, gastritis, GERD, splenic rupture, diverticulitis, UTI, pyelonephritis, nephrolithiasis, appendicitis, constipation, , ectopic , PID, ovarian torsion or tubo-ovarian abscess. PRESCRIPTIONS: Pepcid DISCHARGE: At this time, patient is stable for discharge and outpatient management. I have instructed the patient to follow-up with his/her primary care physician in 1-2 days. I have instructed the patient to promptly return to the ER at any time for any new or worsening symptoms including increased pain, nausea, vomiting, diarrhea, fever, weakness or LOC. The patient and/or family expressed understanding of and agreement with this plan. All questions were answered. Home care instructions were provided. Disclaimer: Inadvertent spelling and grammatical errors are likely due to EHR/dictation software use and do not reflect on the overall quality of patient care. Also, please note that the electronic time recorded on this note does not necessarily reflect the actual time of the patient encounter. Departure Diagnosis: Primary Impression: Abdominal pain Abdominal location: right upper quadrant Qualified Codes: R10.11 - Right upper quadrant pain Condition: Fair Patient Instructions: Abdominal Pain Referrals: COMM[facility]ITY [facility] YOU HAVE RECEIVED A MEDICAL SCREENING EXAM AND THE RESULTS INDICATE THAT YOU DO NOT HAVE A CONDITION THAT REQUIRES URGENT TREATMENT IN THE EMERGENCY DEPARTMENT. FURTHER EVALUATION AND TREATMENT OF YOUR CONDITION CAN WAIT UNTIL YOU ARE SEEN IN YOUR DOCTORS OFFICE WITHIN THE NEXT 1-2 DAYS. IT IS YOUR RESPONSIBILITY TO MAKE AN APPOINTMENT FOR FOLOW-UP CARE. IF YOU HAVE A PRIMARY DOCTOR --you should call your primary doctor and schedule an appointment IF YOU DO NOT HAVE A PRIMARY DOCTOR YOU CAN CALL OUR PHYSICIAN REFERRAL HOTLINE AT IF YOU CAN NOT AFFORD TO SEE A PHYSICIAN YOU CAN CHOSE FROM THE FOLLOWING [facility] [address] [facility] [address] [facility] [address] [facility] [address] [facility] [address] [facility]. [facility] [address] [facility]. [facility] YOU HAVE RECEIVED A MEDICAL SCREENING EXAM AND THE RESULTS INDICATE THAT YOU DO NOT HAVE A CONDITION THAT REQUIRES URGENT TREATMENT IN THE EMERGENCY DEPARTMENT. FURTHER EVALUATION AND TREATMENT OF YOUR CONDITION CAN WAIT UNTIL YOU ARE SEEN IN YOUR DOCTORS OFFICE WITHIN THE NEXT 1-2 DAYS. IT IS YOUR RESPONSIBILITY TO MAKE AN APPOINTMENT FOR FOLOW-UP CARE. IF YOU HAVE A PRIMARY DOCTOR --you should call your primary doctor and schedule and appointment IF YOU DO NOT HAVE A PRIMARY DOCTOR YOU CAN CALL OUR PHYSICIAN REFERRAL HOTLINE AT . IF YOU CAN NOT AFFORD TO SEE A PHYSICIAN YOU CAN CHOSE FROM THE FOLLOWING [facility]: [facility] [address] [place] [address] [facility] [address] [place] [address] [facility] [address] [place] [address] [facility] Additional Instructions: Follow-up with your doctor in regards to your concerns of wanting to switch her gabapentin to Ativan. Call your primary care doctor TOMORROW for an appointment during the next 1-2 days.See the doctor sooner or return here if your condition worsens before your appointment time. SHANIQUE GENAO PA-C Jul 26, 2018 19:53
[2018-07-26 19:56] VITALS: BP 129/75; PULSE 84; RESP 18
== END 2018-07-26 19:57 | disposition home or self-care (01) ==
LOC: FTE 18:04
DX: R10.12 Left upper quadrant pain (principal); E11.9 Type 2 diabetes mellitus without complications; E03.9 Hypothyroidism, unspecified
CPT/HCPCS: 81003; 81025; Z7502; Z7610; 99282

== ENCOUNTER 2018-12-21 17:03 | Emergency (ER) | payer OTHER ==
[~2018-12-21] VITALS: Ht 162.6 cm; Wt 80.0 kg
[~2018-12-21 17:03] MED LIST changes: +FAMO-96 PO; +IBUP-1542 PO; +METO10TA92 PO; +ONDA4TAB14 PO; +SUMA50TA2 PO
[2018-12-21 18:00] VITALS: Ht 162.6 cm; Wt 80.0 kg
[2018-12-21] MEDS ORDERED: DIPHENHYDRAMINE 50 MG INJ IV STA (19:17)
[2018-12-21] MEDS ORDERED: METOCLOPRAMIDE 10 MG INJ IV STA (19:17)
[2018-12-21] MEDS ORDERED: KETOROLAC 30 MG INJ IV STA (19:17)
[2018-12-21] MEDS ORDERED: SOD CHLORIDE 0.9% 1,000 ML IV STA (19:17)
[2018-12-21 21:45] VITALS: BP 114/66; PULSE 84; RESP 18
== END 2018-12-21 21:45 | disposition home or self-care (01) ==
LOC: FTE 17:03
DX: R51 Headache (principal); E03.9 Hypothyroidism, unspecified; E11.9 Type 2 diabetes mellitus without complications; Z79.84 Long term (current) use of oral hypoglycemic drugs
CPT/HCPCS: 81025; 82962; 85025; 96374; 96375; J1200; J1885; J2765; J7030; Z7502